=== PATIENT | female | born 1975 | race Caucasian/White ===

== ENCOUNTER 2016-08-23 02:19 | Emergency (ER) | payer BC ==
[2016-08-23 02:33] VITALS: O2SAT 95
--- NOTE | 2016-08-23 02:33 | ERPHSYRPT ---
- History of Present Illness Time Seen by Provider: 08/23/16 02:30 Source: patient, family Exam Limitations: no limitations Physician History: pt fell and injured right ankle Method of Injury: fell Occurred: just prior to arrival Quality: constant, sharpness, throbbing Severity of Pain-Max: moderate Severity of Pain-Current: moderate Lower Extremities Pain: ankle: right Modifying Factors: Improves With: immobilization, movement Associated Symptoms: unable to bear weight Allergies/Adverse Reactions: No Known Drug Allergies Allergy (Unverified 12/01/14 07:52) Home Medications: No Home Meds 1 ea MC UD 12/01/14 [History] Hx Tetanus, Diphtheria Vaccination/Date Given: Yes Hx Influenza Vaccination/Date Given: No Hx Pneumococcal Vaccination/Date Given: No - Review of Systems Constitutional: No Fever, No Chills Eyes: No Symptoms Ears, Nose, & Throat: No Symptoms Respiratory: No Cough, No Dyspnea Cardiac: No Chest Pain, No Edema, No Syncope Abdominal/Gastrointestinal: No Abdominal Pain, No Nausea, No Vomiting, No Diarrhea Genitourinary Symptoms: No Dysuria Musculoskeletal: Joint Pain, Joint Swelling, No Back Pain, No Neck Pain Skin: No Rash Neurological: No Dizziness, No Focal Weakness, No Sensory Changes Psychological: No Symptoms Endocrine: No Symptoms All Other Systems: Reviewed and Negative - Past Medical History Pertinent Past Medical History: No - Past Surgical History Past Surgical History: Yes Gastrointestinal: Cholecystectomy Female Surgical History: Tubal Ligation - Social History Smoking Status: Current every day smoker Exposure to second hand smoke: Yes Drug Use: none Patient Lives Alone: No - Nursing Vital Signs Nursing Vital Signs: Initial Vital Signs Temperature 98.4 F Temperature Source Oral Pulse Rate 105 Respiratory Rate 16 Blood Pressure [Right Arm] 133/83 Pain Intensity 8 - Physical Exam General Appearance: mild distress, alert Eyes, Ears, Nose, Throat Exam: moist mucous membranes Neck Exam: non-tender, supple Cardiovascular/Respiratory Exam: chest non-tender, normal breath sounds, regular rate/rhythm, no respiratory distress Gastrointestinal/Abdominal Exam: non-tender, guarding Back Exam: normal inspection, No vertebral tenderness Hips Exam: bilateral: non-tender, normal inspection, normal range of motion, no evidence of injury Legs Exam: bilateral leg: non-tender, normal inspection, normal range of motion , no evidence of injury Knees Exam: bilateral knee: non-tender, normal inspection, normal range of motion, no evidence of injury Ankle Exam: right ankle: abrasions/laceration, bone tenderness, deformity, ecchymosis, joint effusion, limited range of motion, left ankle: non-tender, normal inspection, normal range of motion, no evidence of injury Foot Exam: bilateral foot: non-tender, normal inspection, normal range of motion , no evidence of injury DTR - Lower Extremities Exam: knee (R): 2+, knee (L): 2+, ankle (R): 2+, ankle ( L): 2+ Neuro/Tendon Exam: normal sensation, normal motor functions Mental Status Exam: alert, oriented x 3, cooperative Skin Exam: normal color, warm, dry SpO2 Interpretation: normal Oxygen Delivery: Room Air Procedures - Splinting Location of Splint: Right, Ankle, Lower Leg Type of Splint: Orthoglass Short Leg Splint Splint Applied By: ED Nurse Pre-Proc Neuro Vasc Exam: normal Post-Proc Neuro Vasc Exam: neurovascular intact, unchanged from pre-exam - Course Nursing assessment & vital signs reviewed: Yes - Radiology Exams Right Ankle X-ray Interpretation: Non-displaced Fracture (minimal displaced mario fx ) Ordered Tests: Active Orders 24 hr Category Date Time Status ANKLE (3 VIEWS) Stat Exams 08/23/16 02:34 Taken Medication Summary Generic Name Dose Route Start Last Admin Trade Name Freq PRN Reason Stop Dose Admin Sodium Chloride 1,000 mls @ 50 mls/hr 08/23/16 04:45 Sodium Chloride 0.9% 1000 Ml IV 09/22/16 04:44 .Q20H RICK Discontinued Medications Generic Name Dose Route Start Last Admin Trade Name Freq PRN Reason Stop Dose Admin Ketorolac Tromethamine 60 mg 08/23/16 02:34 08/23/16 02:43 Toradol 30 Mg Injection IM 08/23/16 02:35 60 mg STAT ONE Administration Ketorolac Tromethamine Confirm 08/23/16 02:41 Toradol 30 Mg Injection Administered 08/23/16 02:42 Dose 60 mg .ROUTE .STK-MED ONE - Progress Progress: improved, re-examined Progress Note: 08/23/16 05:[address] Rojas and he will see in office wednesday Discussed with Dr.: Other (dr rojas) Will see patient in: office Counseled pt/family regarding: diagnosis, need for follow-up, rad results - Departure Time of Disposition: 05:03 Departure Disposition: Home Clinical Impression: Closed bimalleolar fracture Condition: Good Critical Care Time: No Instructions: Ankle Fracture Additional Instructions: the orthopedic dr has cleared you for release and would like to see you in clinic on Wednesday between 8 and 10 am keep leg elevated; return meantime if any concerns. followup BP with your dr. Prescriptions: Hydrocodone Bit/Acetaminophen [[place] 5-325 Tablet] 1 each PO Q4H PRN PRN #14 tablet PRN Reason: Pain
[2016-08-23] MEDS ORDERED: TORAdol 30 mg Injection IM ONE (02:34)
[2016-08-23] MEDS ORDERED: TORAdol 30 mg Injection ONE (02:41)
[2016-08-23] MEDS ORDERED: Sodium Chloride 0.9% 1000 ML 1,000 ML IV SCH (04:45)
[2016-08-23] MEDS ORDERED: Sodium Chloride 0.9% 1000 ML 1,000 ML ONE (04:48)
[2016-08-23] MEDS ORDERED: Hydromorphone 1 mg/ml Ampule IV ONE (05:17)
[2016-08-23] MEDS ORDERED: Hydromorphone 1 mg/ml Ampule ONE (05:19)
[2016-08-23 06:01] VITALS: BP 118/69; PULSE 72
--- NOTE | 2016-08-23 08:48 | XRAY ---
Indication: Pain and swelling following fall/twisting injury. Comparison: September 20, 2005. 3 views of the right ankle now demonstrates mildly displaced oblique fracture of the distal fibula and small minimally displaced fracture involving the distal tibia posteriorly with soft tissue swelling. No other bony, articular, or soft tissue abnormalities.
== END 2016-08-23 06:02 | disposition home or self-care (01) ==
LOC: ED 02:19
PROC: 2W3QX1Z Immobilization of Right Lower Leg using Splint (ICD-10-PCS; principal; 2016-08-23)
DX: S82.841A Displaced bimalleolar fracture of right lower leg, initial encounter for closed fracture (principal); W19.XXXA Unspecified fall, initial encounter
CPT/HCPCS: 29515; 36000; 73610; 96360; 96372; 96374; 99284; J1170; J1885

== ENCOUNTER 2017-01-13 14:25 | Emergency (ER) | payer OTHER ==
[2017-01-13] MEDS ORDERED: TORAdol 30 mg Injection IV ONE (14:56)
--- NOTE | 2017-01-13 14:58 | ERPHSYRPT ---
- History of Present Illness Time Seen by Provider: 01/13/17 14:57 Source: patient Exam Limitations: no limitations Patient Subjective Stated Complaint: lt arm pain Triage Nursing Assessment: pt had picc line put in on dec 03, 2016 and had picc line removed weeks ago and has contionued to have same pain to outer lt arm with movement since picc line was placed and removed. pain with abduction to lt arm and when she moves lt arm across front of body. no pain with palpation. currently has peripheral line for infusion to inner lower lt arm--no pain to site. no redness to painful area to outer lt arm Physician History: Patient with the PICC line which was placed December 03 in the left arm she states it was removed 2 weeks ago. She states she has been having pain in her left arm worse with movement since Placement of her PICC line and December 03. 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 Patient had been on chronic narcotic analgesia which was prescribed by Dr. Leger. She states she continues to have pain in her left arm worse with movement and attributes this to having placement of the PICC line. Past medical history includes fractures, right ankle fracture, hardware placement. Past surgical history includes cholecystectomy, tubal ligation, orthopedic PDX surgery which includes right ankle hardware. Occurred: other (pain since December 03 with placement of pic line.) Method of Injury: other (pain since placement of PICC LINE) Extremities Pain Location: arm: left Modifying Factors: Improves With: nothing Associated Symptoms: none Allergies/Adverse Reactions: oxycodone [From Percocet] Allergy (Mild, Verified 01/13/17 14:42) Itching Home Medications: Ceftriaxone 2 GM/50 ML PREMIX* [ROCEPHIN 2 Gm-D5w 50ML BAG] 2 g IV DAILY 12/18 [History] Diphenhydramine HCl 25 mg [Benadryl 25 mg Capsule] 25 mg PO Q4H PRN PRN [History] Lisinopril 5 mg [Zestril 5 MG] 5 mg PO DAILY 01/13/17 [History] Hx Tetanus, Diphtheria Vaccination/Date Given: Yes Hx Influenza Vaccination/Date Given: No Hx Pneumococcal Vaccination/Date Given: No Immunizations Up to Date: Yes - Review of Systems Constitutional: No Fever, No Chills Eyes: No Symptoms Ears, Nose, & Throat: No Symptoms Respiratory: No Cough, No Dyspnea Cardiac: No Chest Pain, No Edema, No Syncope Abdominal/Gastrointestinal: No Abdominal Pain, No Nausea, No Vomiting, No Diarrhea Genitourinary Symptoms: No Dysuria Musculoskeletal: Other (LEFT ARM PAIN) Skin: No Symptoms, No Rash Neurological: No Dizziness, No Focal Weakness, No Sensory Changes Psychological: No Symptoms Endocrine: No Symptoms All Other Systems: Reviewed and Negative - Past Medical History Pertinent Past Medical History: Yes Neurological History: No Pertinent History ENT History: No Pertinent History Cardiac History: No Pertinent History Respiratory History: No Pertinent History Endocrine Medical History: No Pertinent History Musculoskeletal History: Fractures GI Medical History: No Pertinent History History: No Pertinent History Psycho-Social History: No Pertinent History Female Reproductive Disorders: No Pertinent History Other Medical History: right ankle fr with hardware placement and removal - Past Surgical History Past Surgical History: Yes Neuro Surgical History: No Pertinent History Cardiac: No Pertinent History Respiratory: No Pertinent History Gastrointestinal: Cholecystectomy Genitourinary: No Pertinent History Musculoskeletal: Orthopedic Surgery Female Surgical History: Tubal Ligation Other Surgical History: right ankle hardware place and remove. - Social History Smoking Status: Current every day smoker How long have you smoked: 10yrs Exposure to second hand smoke: Yes Drug Use: none Patient Lives Alone: No - Female History Hx Last Menstrual Period: 3 weeks Hx Now: No - Nursing Vital Signs Nursing Vital Signs: Initial Vital Signs Temperature 97.5 F 01/13/17 14:34 Pulse Rate 104 H 01/13/17 14:34 Respiratory Rate 20 01/13/17 14:34 Blood Pressure 167/99 01/13/17 14:34 O2 Sat by Pulse Oximetry 100 01/13/17 14:34 Pain Scale Pain Intensity 6 - Physical Exam General Appearance: alert Eyes, Ears, Nose, Throat Exam: moist mucous membranes Neck Exam: non-tender, supple Cardiovascular/Respiratory Exam: chest non-tender, normal breath sounds, regular rate/rhythm, no respiratory distress Abdominal Exam: non-tender, No guarding Back Exam: normal inspection, No vertebral tenderness Shoulder Exam: non-tender, no evidence of injury, normal ROM, No normal inspection (pain with palpation and movement left lateral arm) Elbow/Forearm Exam: normal inspection, non-tender, no evidence of injury, normal ROM Wrist Exam: normal inspection, non-tender, no evidence of injury, normal ROM Hand Exam: normal inspection, non-tender, no evidence of injury Neuro/Tendon Exam: normal sensation, normal motor functions Mental Status Exam: alert, oriented x 3, cooperative Skin Exam: normal color, warm, dry SpO2 Interpretation: normal (100%) SpO2: 100 Oxygen Delivery: Room Air - Course Nursing assessment & vital signs reviewed: Yes - Radiology Ultrasound Exam Venous Upper Extremity Ultrasound: Other (venous Doppler left upper extremity: No DVT discussed with tissue technologist) Ordered Tests: Active Orders 24 hr Category Date Time Status IV Insertion STAT Care 01/13/17 14:54 Active VENOUS UNILAT/LIMITED EXTREMIT [US] Stat Exams 01/13/17 Taken BMP Stat Lab 01/13/17 15:50 Completed CBC W DIFF Stat Lab 01/13/17 15:50 Completed D-DIMER QUANTITATION Stat Lab 01/13/17 15:50 Received PROTIME WITH INR Stat Lab 01/13/17 15:50 Received PTT Stat Lab 01/13/17 15:50 Received Medication Summary Discontinued Medications Generic Name Dose Route Start Last Admin Trade Name Freq PRN Reason Stop Dose Admin Ketorolac Tromethamine 30 mg 01/13/17 14:56 01/13/17 15:23 Toradol 30 Mg Injection IV 01/13/17 14:57 30 mg STAT ONE Administration Ketorolac Tromethamine Confirm 01/13/17 15:22 Toradol 30 Mg Injection Administered 01/13/17 15:23 Dose 30 mg .ROUTE .RUST-MED ONE Lab/Rad Data: Laboratory Result Diagrams 01/13/17 15:50 01/13/17 15:50 Laboratory Results 01/13/17 01/13/17 Range/Units 15:50 15:50 WBC 11.5 H (4.0-10.5) K/mm3 RBC 5.51 H (4.1-5.4) M/mm3 Hgb 15.3 (12.0-16.0) gm/dl Hct 47.9 H (35-47) % MCV 86.9 (78-100) fl MCH 27.7 (26-32) pg MCHC 31.9 L (32-36) g/dl RDW 15.5 H (11.5-14.0) % Plt Count 440 (150-450) K/mm3 MPV 9.4 (6-9.5) fl Gran % 69.2 H (36.0-66.0) % Lymphocytes % 20.2 L (24.0-44.0) % Monocytes % 8.9 (0.0-12.0) % Eosinophils % 1.4 (0.00-5.0) % Basophils % 0.3 (0.0-0.4) % Basophils # 0.03 (0-0.4) Sodium 136 (136-145) mEq/L Potassium 3.9 (3.5-5.1) mEq/L Chloride 102 (98-107) mEq/L Carbon Dioxide 21.1 (21-32) mEq/L Anion Gap 16.6 H (5-15) MEQ/L BUN 6 L (9-20) mg/dL Creatinine 0.71 (0.55-1.30) mg/dl Estimated GFR > 60 ML/MIN Glucose 87 (70-110) MG/DL Calcium 9.3 (8.5-10.1) mg/dL - Progress Progress: improved Progress Note: 01/13/17 16:32 Venous Doppler left upper extremity negative DVT. Patient did have an elevated d-dimer. Will discharge patient [place] for pain patient to follow-up with her family doctor. - Departure Time of Disposition: 16:32 Departure Disposition: Home Clinical Impression: Left arm pain, History of recent PICC line removal Condition: Fair Critical Care Time: No Referrals: DEIDRA DUKE MD [Primary Care Provider] - Additional Instructions: Return home. [place] 5/325 #12 one orally every 4-6 hours as needed for pain. Follow-up with your family doctor. Return for acute distress or for severe symptoms. Prescriptions: Hydrocodone/Acetaminophen [[place] 5-325 Tablet] 1 tab PO Q4-6HPRN PRN #12 tablet PRN Reason: Pain
[2017-01-13] MEDS ORDERED: TORAdol 30 mg Injection ONE (15:22)
[2017-01-13 15:52] LABS: BASOPHIL % 0.3 % (0.0-0.4); Eosinophil % 1.4 % (0.00-5.0); Granulocytes % 69.2 % (36.0-66.0); Lymphocytes % 20.2 % (24.0-44.0); Mean Cell Volume 86.9 fl (78-100); Mean Platelet Volume 9.4 fl (6-9.5); Monocytes % 8.9 % (0.0-12.0); Platelet Count 440 K/mm3 (150-450); Red Blood Count 5.51 M/mm3 (4.1-5.4); Red Cell Distribution Width 15.5 % (11.5-14.0); White Blood Count 11.5 K/mm3 (4.0-10.5)
[2017-01-13 16:06] LABS: Mean Corpuscular Hemoglobin 27.7 pg (26-32)
[2017-01-13 16:24] LABS: INR 1.13 (0.8-3.0); PROTIME 12.6 SECONDS (9.95-12.35)
[2017-01-13 16:25] LABS: ANION GAP 16.6 MEQ/L (5-15); BLOOD UREA NITROGEN 6 mg/dL (9-20); CHLORIDE 102 mEq/L (98-107); Carbon Dioxide 21.1 mEq/L (21-32); Glucose 87 MG/DL (70-110); Potassium 3.9 mEq/L (3.5-5.1); SODIUM 136 mEq/L (136-145)
[2017-01-13 16:26] LABS: PTT 30.6 SECONDS (25.3-37.0)
[2017-01-13 17:06] VITALS: BP 116/81; PULSE 90; O2SAT 94
--- NOTE | 2017-01-13 22:11 | XRAY ---
Indication: Left arm pain. 2-dimensional sonogram and color Doppler imaging of the major venous vessels of the left upper extremity was performed. Comparison: None No thrombus seen in the visualized jugular, subclavian, axillary, basilic, radial, cephalic, radial, and ulnar veins. These veins demonstrate normal compressibility. Venous waveforms are normal with and without augmentation. Impression: Left upper extremity negative for venous thrombosis. Comment: Preliminary report was given.
== END 2017-01-13 17:06 | disposition home or self-care (01) ==
LOC: ED 14:25
DX: M79.602 Pain in left arm (principal); Z98.890 Other specified postprocedural states
CPT/HCPCS: 36415; 80048; 85025; 85379; 85610; 85730; 93971; 96374; 99284; J1885

== ENCOUNTER 2019-05-19 01:20 | Emergency (ER) | payer SELFPAY ==
--- NOTE | 2019-05-19 01:43 | ERPHSYRPT ---
- History of Present Illness Source: patient Exam Limitations: no limitations Hx Tetanus, Diphtheria Vaccination/Date Given: Yes Hx Influenza Vaccination/Date Given: No Hx Pneumococcal Vaccination/Date Given: No <JESS CUNHA - Last Filed: 05/19/19 07:17> <VIDYA BARROW - Last Filed: 05/19/19 10:44> - History of Present Illness Time Seen by Provider: 05/19/19 01:33 Physician History: For the past hour pt has had suicidal thoughts without a plan after an argument with her . Pt denies suicidal attempt in the past and having suicidal thoughts before tonight. Pt denies chest pain, shortness of air, abdominal pain , headache, fever. (JESS CUNHA) Allergies/Adverse Reactions: oxycodone [From Percocet] Allergy (Mild, Verified 05/19/19 02:03) Itching Travel Risk - International Travel Have you traveled outside of the country in past 3 weeks: No Have you or anyone close to you been diagnosed with or: No Do your reside in a community with a known COVID-19 case?: Yes If Yes where:: [place] - Coronavirus Screening Has patient experienced Coronavirus symptoms: No <JESS CUNHA - Last Filed: 05/19/19 07:17> - Past Medical History Pertinent Past Medical History: Yes Neurological History: No Pertinent History ENT History: No Pertinent History Cardiac History: No Pertinent History Respiratory History: No Pertinent History Endocrine Medical History: No Pertinent History Musculoskeletal History: Fractures GI Medical History: No Pertinent History History: No Pertinent History Psycho-Social History: No Pertinent History Female Reproductive Disorders: No Pertinent History Other Medical History: right ankle fr with hardware placement and removal - Past Surgical History Past Surgical History: Yes Neuro Surgical History: No Pertinent History Cardiac: No Pertinent History Respiratory: No Pertinent History Gastrointestinal: Cholecystectomy Genitourinary: No Pertinent History Musculoskeletal: Orthopedic Surgery Female Surgical History: Tubal Ligation Other Surgical History: right ankle hardware place and remove. - Social History Smoking Status: Current every day smoker How long have you smoked: 10yrs Exposure to second hand smoke: Yes Drug Use: none Patient Lives Alone: No <JESS CUNHA - Last Filed: 05/19/19 07:17> - Review of Systems Constitutional: No Fever Ears, Nose, & Throat: No Throat Pain Respiratory: No Cough, No Dyspnea Cardiac: No Chest Pain Abdominal/Gastrointestinal: No Abdominal Pain, No Nausea, No Vomiting Psychological: Suicidal Ideations, No Hallucinations All Other Systems: Reviewed and Negative <JESS CUNHA - Last Filed: 05/19/19 07:17> - Physical Exam General Appearance: alert Eyes, Ears, Nose, Throat Exam: pharynx normal, moist mucous membranes Neck Exam: normal inspection Respiratory Exam: lungs clear Cardiovascular Exam: normal heart sounds Gastrointestinal/Abdominal Exam: soft, normal bowel sounds Extremities Exam: No edema Current Suicidality: denies suicide plan Neurological Exam: alert Appearance: appropriate appearance Behavior/Eye Contact/Speech: alert & cooperative Thoughts/Hallucinations: No auditory hallucinations, No visual hallucinations Skin Exam: warm, dry <JESS CUNHA - Last Filed: 05/19/19 07:17> <VIDYA BARROW - Last Filed: 05/19/19 10:44> - Nursing Vital Signs Nursing Vital Signs: Initial Vital Signs Temperature 98.4 F 05/19/19 01:24 Pulse Rate 121 H 05/19/19 01:24 Respiratory Rate 16 05/19/19 01:24 Blood Pressure 178/128 05/19/19 01:24 O2 Sat by Pulse Oximetry 98 05/19/19 01:24 Pain Scale Pain Intensity 0 - Course Nursing assessment & vital signs reviewed: Yes <JESS CUNHA - Last Filed: 05/19/19 07:17> Ordered Tests: Active Orders 24 hr Category Date Time Status Tele-Health Consult ROUTINE Cons 05/19/19 02:10 Active ACETAMINOPHEN Stat Lab 05/19/19 01:40 Completed AMYLASE Stat Lab 05/19/19 01:40 Completed CBC W DIFF Stat Lab 05/19/19 01:40 Completed CBC W DIFF Stat Lab 05/19/19 05:25 Completed CMP Stat Lab 05/19/19 01:40 Completed CULTURE,URINE Stat Lab 05/19/19 01:41 Received ETHYL ALCOHOL Stat Lab 05/19/19 01:40 Completed ETHYL ALCOHOL Stat Lab 05/19/19 05:25 Completed ETHYL ALCOHOL Stat Lab 05/19/19 08:22 Completed HCG QUALITATIVE,SERUM Stat Lab 05/19/19 01:40 Completed LIPASE Stat Lab 05/19/19 01:40 Completed MAGNESIUM Stat Lab 05/19/19 01:40 Completed SALICYLATE Stat Lab 05/19/19 01:40 Completed UA W/RFX UR CULTURE Stat Lab 05/19/19 01:41 Completed Urine Triage Profile Stat Lab 05/19/19 01:41 Completed Medication Summary Discontinued Medications Generic Name Dose Route Start Last Admin Trade Name Rosendo PRN Reason Stop Dose Admin Acetaminophen 650 mg 05/19/19 02:49 05/19/19 02:52 Tylenol 325 Mg PO 05/19/19 02:50 650 mg STAT STA Administration Acetaminophen Confirm 05/19/19 02:51 Tylenol 325 Mg Administered 05/19/19 02:52 Dose 650 mg .ROUTE .[facility] Lab/Rad Data: Laboratory Result Diagrams 05/19/19 05:25 05/19/19 01:40 Laboratory Results 05/19/19 05/19/19 05/19/19 Range/Units 08:22 05:25 05:25 WBC 15.7 H (4.0-10.5) K/mm3 RBC 4.98 (4.1-5.4) M/mm3 Hgb 14.3 (12.0-16.0) gm/dl Hct 44.0 (35-47) % MCV 88.4 (78-100) fl MCH 28.7 (26-32) pg MCHC 32.5 (32-36) g/dl RDW 15.7 H (11.5-14.0) % Plt Count 485 H (150-450) K/mm3 MPV 9.4 (7.5-11.0) fl Gran % 70.5 H (36.0-66.0) % Eos # (Auto) 0.18 (0-0.5) Absolute Lymphs (auto) 3.67 (1.0-4.6) Absolute Monos (auto) 0.76 (0.0-1.3) Lymphocytes % 23.4 L (24.0-44.0) % Monocytes % 4.9 (0.0-12.0) % Eosinophils % 1.1 (0.00-5.0) % Basophils % 0.1 (0.0-0.4) % Absolute Granulocytes 11.03 H (1.4-6.9) Basophils # 0.02 (0-0.4) Sodium (137-145) mmol/L Potassium (3.5-5.1) mmol/L Chloride (98-107) mmol/L Carbon Dioxide (22-30) mmol/L Anion Gap (5-15) MEQ/L BUN (7-17) mg/dL Creatinine (0.52-1.04) mg/dL Estimated GFR ML/MIN Glucose (74-106) mg/dL Calcium (8.4-10.2) mg/dL Magnesium (1.6-2.3) mg/dL Total Bilirubin (0.2-1.3) mg/dL AST (14-36) U/L ALT (0-35) U/L Alkaline Phosphatase (38-126) U/L Serum Total Protein (6.3-8.2) g/dL Albumin (3.5-5.0) g/dL Amylase (30-110) U/L Lipase (23-300) U/L Serum , Qual (Negative) Urine Color (YELLOW) Urine Appearance (CLEAR) Urine pH (5-6) Ur Specific Kite (1.005-1.025) Urine Protein (Negative) Urine Ketones (NEGATIVE) Urine Blood (0-5) Romeo/ul Urine Nitrite (NEGATIVE) Urine Bilirubin (NEGATIVE) Urine Urobilinogen (0-1) mg/dL Ur Leukocyte Esterase (NEGATIVE) Urine WBC (Auto) (0-5) /HPF Urine RBC (Auto) (0-2) /HPF U Epithel Cells (Auto) (FEW) /HPF Urine Bacteria (Auto) (NEGATIVE) /HPF Urine Culture Reflexed (NO) Urine Glucose (NEGATIVE) mg/dL Salicylates (2-20) mg/dL Urine Opiates Level (NEGATIVE) Ur Methadone (NEGATIVE) Acetaminophen (10-30) ug/ml Urine Barbiturates (NEGATIVE) Ur Phencyclidine (PCP) (NEGATIVE) Urine Amphetamine (NEGATIVE) U Benzodiazepine Level (NEGATIVE) Urine Cocaine (NEGATIVE) Urine Marijuana (THC) (NEGATIVE) Ethyl Alcohol 32 H 118 H (0-10) mg/dL 05/19/19 05/19/19 05/19/19 Range/Units 01:41 01:41 01:40 WBC (4.0-10.5) K/mm3 RBC (4.1-5.4) M/mm3 Hgb (12.0-16.0) gm/dl Hct (35-47) % MCV (78-100) fl MCH (26-32) pg MCHC (32-36) g/dl RDW (11.5-14.0) % Plt Count (150-450) K/mm3 MPV (7.5-11.0) fl Gran % (36.0-66.0) % Eos # (Auto) (0-0.5) Absolute Lymphs (auto) (1.0-4.6) Absolute Monos (auto) (0.0-1.3) Lymphocytes % (24.0-44.0) % Monocytes % (0.0-12.0) % Eosinophils % (0.00-5.0) % Basophils % (0.0-0.4) % Absolute Granulocytes (1.4-6.9) Basophils # (0-0.4) Sodium (137-145) mmol/L Potassium (3.5-5.1) mmol/L Chloride (98-107) mmol/L Carbon Dioxide (22-30) mmol/L Anion Gap (5-15) MEQ/L BUN (7-17) mg/dL Creatinine (0.52-1.04) mg/dL Estimated GFR ML/MIN Glucose (74-106) mg/dL Calcium (8.4-10.2) mg/dL Magnesium (1.6-2.3) mg/dL Total Bilirubin (0.2-1.3) mg/dL AST (14-36) U/L ALT (0-35) U/L Alkaline Phosphatase (38-126) U/L Serum Total Protein (6.3-8.2) g/dL Albumin (3.5-5.0) g/dL Amylase (30-110) U/L Lipase (23-300) U/L Serum , Qual NEGATIVE (Negative) Urine Color COLORLESS (YELLOW) Urine Appearance CLEAR (CLEAR) Urine pH 6.0 (5-6) Ur Specific Kite 1.001 (1.005-1.025) Urine Protein 30 (Negative) Urine Ketones NEGATIVE (NEGATIVE) Urine Blood LARGE (0-5) Romeo/ul Urine Nitrite NEGATIVE (NEGATIVE) Urine Bilirubin NEGATIVE (NEGATIVE) Urine Urobilinogen NEGATIVE (0-1) mg/dL Ur Leukocyte Esterase NEGATIVE (NEGATIVE) Urine WBC (Auto) NONE (0-5) /HPF Urine RBC (Auto) NONE SEEN (0-2) /HPF U Epithel Cells (Auto) NONE (FEW) /HPF Urine Bacteria (Auto) NONE SEEN (NEGATIVE) /HPF Urine Culture Reflexed YES (NO) Urine Glucose NEGATIVE (NEGATIVE) mg/dL Salicylates (2-20) mg/dL Urine Opiates Level NEGATIVE (NEGATIVE) Ur Methadone NEGATIVE (NEGATIVE) Acetaminophen (10-30) ug/ml Urine Barbiturates NEGATIVE (NEGATIVE) Ur Phencyclidine (PCP) NEGATIVE (NEGATIVE) Urine Amphetamine NEGATIVE (NEGATIVE) U Benzodiazepine Level NEGATIVE (NEGATIVE) Urine Cocaine NEGATIVE (NEGATIVE) Urine Marijuana (THC) NEGATIVE (NEGATIVE) Ethyl Alcohol (0-10) mg/dL 05/19/19 05/19/19 05/19/19 Range/Units 01:40 01:40 01:40 WBC 20.8 H (4.0-10.5) K/mm3 RBC 5.07 (4.1-5.4) M/mm3 Hgb 14.7 (12.0-16.0) gm/dl Hct 44.7 (35-47) % MCV 88.2 (78-100) fl MCH 29.0 (26-32) pg MCHC 32.9 (32-36) g/dl RDW 15.7 H (11.5-14.0) % Plt Count 557 H (150-450) K/mm3 MPV 9.4 (7.5-11.0) fl Gran % 70.7 H (36.0-66.0) % Eos # (Auto) 0.16 (0-0.5) Absolute Lymphs (auto) 4.48 (1.0-4.6) Absolute Monos (auto) 1.40 H (0.0-1.3) Lymphocytes % 21.6 L (24.0-44.0) % Monocytes % 6.7 (0.0-12.0) % Eosinophils % 0.8 (0.00-5.0) % Basophils % 0.2 (0.0-0.4) % Absolute Granulocytes 14.69 H (1.4-6.9) Basophils # 0.04 (0-0.4) Sodium 139 (137-145) mmol/L Potassium 3.5 (3.5-5.1) mmol/L Chloride 101 (98-107) mmol/L Carbon Dioxide 23 (22-30) mmol/L Anion Gap 17.9 H (5-15) MEQ/L BUN 3 L (7-17) mg/dL Creatinine 0.46 L (0.52-1.04) mg/dL Estimated GFR > 60.0 ML/MIN Glucose 109 H (74-106) mg/dL Calcium 9.3 (8.4-10.2) mg/dL Magnesium 1.9 (1.6-2.3) mg/dL Total Bilirubin 0.40 (0.2-1.3) mg/dL AST 31 (14-36) U/L ALT 23 (0-35) U/L Alkaline Phosphatase 95 (38-126) U/L Serum Total Protein 8.9 H (6.3-8.2) g/dL Albumin 4.7 (3.5-5.0) g/dL Amylase 59 (30-110) U/L Lipase 107 (23-300) U/L Serum , Qual (Negative) Urine Color (YELLOW) Urine Appearance (CLEAR) Urine pH (5-6) Ur Specific Kite (1.005-1.025) Urine Protein (Negative) Urine Ketones (NEGATIVE) Urine Blood (0-5) Romeo/ul Urine Nitrite (NEGATIVE) Urine Bilirubin (NEGATIVE) Urine Urobilinogen (0-1) mg/dL Ur Leukocyte Esterase (NEGATIVE) Urine WBC (Auto) (0-5) /HPF Urine RBC (Auto) (0-2) /HPF U Epithel Cells (Auto) (FEW) /HPF Urine Bacteria (Auto) (NEGATIVE) /HPF Urine Culture Reflexed (NO) Urine Glucose (NEGATIVE) mg/dL Salicylates < 1.0 L (2-20) mg/dL Urine Opiates Level (NEGATIVE) Ur Methadone (NEGATIVE) Acetaminophen < 10 L (10-30) ug/ml Urine Barbiturates (NEGATIVE) Ur Phencyclidine (PCP) (NEGATIVE) Urine Amphetamine (NEGATIVE) U Benzodiazepine Level (NEGATIVE) Urine Cocaine (NEGATIVE) Urine Marijuana (THC) (NEGATIVE) Ethyl Alcohol 223 H (0-10) mg/dL <JESS CUNHA - Last Filed: 05/19/19 07:17> - Progress Progress: improved Counseled pt/family regarding: lab results, diagnosis, need for follow-up, rad results <VIDYA BARROW - Last Filed: 05/19/19 10:44> - Progress Progress Note: Patient is checked out to me at end of Dr. Cunha shift with pending psych eval as patient alcohol level was not below the limit. Patient alcohol level is improved. She has been evaluated by [facility] and do not think patient is an imminent threat to herself or anyone else. I have talked to patient multiple times and asked a question different ways but she denied any suicidal or homicidal ideations or plan. Patient reports she dated because she was angry and does not have any intent to do it. I believe she has a anger outburst and has a reaction she started to drink. She is counseled on drinking and recommended outpatient follow-up with [facility]. This point I do not think she needs any further work-up and is stable for discharge. Discussed with patient about symptoms signs of worsening needing return to ER or call 911 immediately if she has again has any suicidal/homicidal thoughts. 05/19/19 10:39 05/19/19 10:44 (VIDYA BARROW) <JESS CUNHA - Last Filed: 05/19/19 07:17> - Departure Departure Disposition: Home Critical Care Time: No <VIDYA BARROW - Last Filed: 05/19/19 10:44> - Departure Clinical Impression: Outbursts of anger Alcohol intoxication Qualifiers: Complication of substance-induced condition: with unspecified complication Qualified Code(s): F10.929 - Alcohol use, unspecified with intoxication, unspecified Condition: Stable Referrals: DEIDRA DUKE MD [Primary Care Provider] - Follow Up with PCP/3 days Instructions: Alcohol Abuse and Alcoholism (DC), Self-Harm (DC) Additional Instructions: Follow-up with your primary care in [facility] for reevaluation. Do not drink alcohol. Return to ER or call 911 if again has any suicidal ideations/ homicidal ideations or plans.
[2019-05-19 01:49] LABS: Absolute Neutrophil Ct (ANC) 14.69 (1.4-6.9); BASOPHIL % 0.2 % (0.0-0.4); Basophil (Absolute #) 0.04 (0-0.4); Eosinophil % 0.8 % (0.00-5.0); Eosinophil (Absolute #) 0.16 (0-0.5); Hematocrit 44.7 % (35-47); Hemoglobin 14.7 gm/dl (12.0-16.0); Lymphocyte (Absolute #) 4.48 (1.0-4.6); Lymphocytes % 21.6 % (24.0-44.0); Mean Cell Volume 88.2 fl (78-100); Mean Corpuscular Hgb Concent. 32.9 g/dl (32-36); Mean Platelet Volume 9.4 fl (7.5-11.0); Monocytes % 6.7 % (0.0-12.0); Neutrophil % 70.7 % (36.0-66.0); Platelet Count 557 K/mm3 (150-450); Red Blood Count 5.07 M/mm3 (4.1-5.4); Red Cell Distribution Width 15.7 % (11.5-14.0); White Blood Count 20.8 K/mm3 (4.0-10.5)
[2019-05-19 01:50] LABS: Appearance CLEAR (CLEAR); Bilirubin NEGATIVE (NEGATIVE); Blood LARGE Ery/ul (0-5); Glucose NEGATIVE (NEGATIVE); Ketones NEGATIVE (NEGATIVE); Leukocyte Esterase NEGATIVE (NEGATIVE); Nitrite NEGATIVE (NEGATIVE); Protein,Urine Dip 30 (Negative); Specific Gravity 1.001 (1.005-1.025); Urobilinogen NEGATIVE mg/dL (0-1)
[2019-05-19 01:52] LABS: Bacteria NONE SEEN /HPF (NEGATIVE); RBC NONE SEEN /HPF (0-2)
[2019-05-19 01:53] LABS: MAGNESIUM 1.9 mg/dL (1.6-2.3)
[2019-05-19 01:55] LABS: ALBUMIN 4.7 g/dL (3.5-5.0); ALKALINE PHOSPHATASE 95 U/L (38-126); ANION GAP 17.9 MEQ/L (5-15); BLOOD UREA NITROGEN 3 mg/dL (7-17); CHLORIDE 101 mmol/L (98-107); Calcium 9.3 mg/dL (8.4-10.2); Carbon Dioxide 23 mmol/L (22-30); Creatinine 1 0.46 mg/dL (0.52-1.04); ETHYL ALCOHOL 223 mg/dL (0-10); Glucose 109 mg/dL (74-106); Potassium 3.5 mmol/L (3.5-5.1); SGOT/AST 31 U/L (14-36); SGPT/ALT 23 U/L (0-35); SODIUM 139 mmol/L (137-145); Total Protein 8.9 g/dL (6.3-8.2)
[2019-05-19 01:56] LABS: ACETAMINOPHEN < 10 ug/ml (10-30); SALICYLATE < 1.0 mg/dL (2-20)
[2019-05-19 02:04] LABS: Amphetamine,Urine NEGATIVE (NEGATIVE); Barbiturate,Urine NEGATIVE (NEGATIVE); Benzodiazepine,Urine NEGATIVE (NEGATIVE); Cocaine,Urine NEGATIVE (NEGATIVE); Methadone,Urine NEGATIVE (NEGATIVE); Opiate,Urine NEGATIVE (NEGATIVE); PCP,Urine NEGATIVE (NEGATIVE); THC,Urine NEGATIVE (NEGATIVE)
[2019-05-19] MEDS ORDERED: TYLENOL 325 MG PO STA (02:49)
[2019-05-19] MEDS ORDERED: TYLENOL 325 MG ONE (02:51)
[2019-05-19 05:40] LABS: Absolute Neutrophil Ct (ANC) 11.03 (1.4-6.9); BASOPHIL % 0.1 % (0.0-0.4); Basophil (Absolute #) 0.02 (0-0.4); Eosinophil % 1.1 % (0.00-5.0); Eosinophil (Absolute #) 0.18 (0-0.5); Hemoglobin 14.3 gm/dl (12.0-16.0); Lymphocyte (Absolute #) 3.67 (1.0-4.6); Lymphocytes % 23.4 % (24.0-44.0); Mean Cell Volume 88.4 fl (78-100); Mean Corpuscular Hemoglobin 28.7 pg (26-32); Mean Corpuscular Hgb Concent. 32.5 g/dl (32-36); Mean Platelet Volume 9.4 fl (7.5-11.0); Monocyte (Absolute #) 0.76 (0.0-1.3); Monocytes % 4.9 % (0.0-12.0); Neutrophil % 70.5 % (36.0-66.0); Platelet Count 485 K/mm3 (150-450); Red Blood Count 4.98 M/mm3 (4.1-5.4); Red Cell Distribution Width 15.7 % (11.5-14.0); White Blood Count 15.7 K/mm3 (4.0-10.5)
[2019-05-19 08:10] VITALS: O2SAT 98
[2019-05-19 10:39] VITALS: BP 140/86; PULSE 102
== END 2019-05-19 10:45 | disposition home or self-care (01) ==
LOC: ED 01:20
DX: R45.4 Irritability and anger (principal); F10.929 Alcohol use, unspecified with intoxication, unspecified
CPT/HCPCS: 36415; 80053; 80307; 81001; 81025; 82150; 83690; 83735; 85025; 87086; 99284; G0481; A9270-GY; G0480